=== PATIENT | female | born 1995 | race Caucasian/White ===

== ENCOUNTER 2019-11-23 11:45 | Inpatient (IN) ==
[2019-11-23] MEDS ORDERED: CITRIC ACID/SODIUM CITRATE 30 ML UDCUP PO ONE (11:48)
[2019-11-23] MEDS ORDERED: FAMOTIDINE 20 MG/2 ML VIAL IV ONE (11:48)
[2019-11-23] MEDS ORDERED: LACTATED RINGERS 1,000 ML IV SCH (12:00)
[2019-11-23 12:18] LABS: Basophils % 0.2 % (0.0-0.8); Eosinophils # 0.1 10*3/uL (0.0-0.87); Eosinophils % 0.9 % (0.00-10.9); Hemoglobin 13.5 GM/DL (12.0-16.0); Immature Granulocytes % 0.6 %; Immature Granulocytes Absolute 0.06 #; Lymphocytes % 20.9 % (21.3-54.2); Mean Corpuscular HGB Conc 32.9 GM/DL (32-36); Mean Corpuscular Volume 88.2 FL (87-102); Mean Platelet Volume 10.5 FL (9.6-12.0); Monocytes % 6.3 % (1.7-12.7); Neutrophils % 71.1 % (38.7-73.9); Platelet Count 243 T/CUMM (130-400); Red Blood Count 4.65 MC/CUMM (3.8-5.5); Red Cell Distribution Width 13.8 % (9.3-17.3); White Blood Count 9.7 T/CUMM (4-12)
[2019-11-23] MEDS ORDERED: MAGNESIUM SULF RIDER 100 ML IV ONE (12:18)
[2019-11-23] MEDS ORDERED: BUPIVACAINE SPINAL 0.75% 2 ML AMP SPINAL ONE (12:19)
[2019-11-23] MEDS ORDERED: PHENYLEPHRINE 1 MG/10 ML SYRINGE IV ONE (12:19)
[2019-11-23] MEDS ORDERED: ONDANSETRON 4 MG/2 ML VIAL ONE (12:19)
[2019-11-23] MEDS ORDERED: MORPHINE 10 MG/10 ML VIAL ONE (12:22)
[2019-11-23 12:33] LABS: INR 0.9; PT Patient Result 9.8 SECS (9.8-11.9); Partial Thromboplastin Time 26.7 SECS (23.9-33.8)
[2019-11-23] MEDS ORDERED: VANCOMYCIN INJ 2,000 MG in SODIUM CHLORIDE 0.9% 500 ML IV ONE (12:45)
[2019-11-23] MEDS ORDERED: OXYTOCIN/LR 30 UNIT/1,000 ML BAG IV ONE (13:28)
[2019-11-23 14:19] LABS: Cord Arterial Blood HCO3 18.7 MMOL/L
[2019-11-23 14:22] LABS: Cord Venous Blood HCO3 20.3 MMOL/L; Cord Venous Blood PCO2 60.9 MMHG; Cord Venous Blood PO2 21.8
[2019-11-23 14:23] LABS: Apearance,Urine CLEAR (Clear); Bilirubin,Urine Negative (Negative); Blood, Urine Negative (Negative); Glucose,Urine (UA) >=500 mg/dL (Negative); Ketones,Urine Negative (Negative); Mucus,Urine Occasional /LPF (Occasional); Nitrite,Urine Negative (Negative); Protein,Urine 100 MG/DL; Squamous Epithelial Cell,Urine Occasional /HPF (0-10); Urine Color Yellow (Yellow); Urine Specific Gravity 1.016 (1.001-1.035); Urine Urobilinogen < 2.0 EU/DL (0.2-1.0); WBC,Urine 1 /HPF (0-6)
[2019-11-23] MEDS ORDERED: MIDAZOLAM 2 MG/2 ML VIAL ONE (14:58)
[2019-11-23] MEDS ORDERED: propofoL 200 MG/20 ML VIAL IV ONE (14:58)
[2019-11-23] MEDS ORDERED: GLYCOPYRROLATE 0.4 MG/2 ML VIAL ONE (14:58)
[2019-11-23] MEDS ORDERED: KETOROLAC 60 MG/2 ML VIAL IM ONE (14:58)
[2019-11-23] MEDS: MAGNESIUM SULF DRIP 40 GM/1,000 ML ML IV SCH (16:09)
[2019-11-23] MEDS ORDERED: RHO(D) IMMUNE GLOBULIN 300 MCG SYRINGE IM ONE (17:20)
[2019-11-23] MEDS ORDERED: ONDANSETRON 4 MG/2 ML VIAL IV PRN (17:20)
[2019-11-23] MEDS ORDERED: OXYTOCIN/LR 20 UNIT/1,000 ML BAG IV ONE (17:20)
[2019-11-23] MEDS ORDERED: ACETAMINOPHEN 325 MG TABLET PO PRN (17:20)
[2019-11-23 21:25] LABS: Alanine Aminotransferase 16 U/L (13-56); Albumin 2.3 G/DL (3.4-5.0); Alkaline Phosphatase 78 U/L (45-117); Aspartate Amino Transferase 19 U/L (0-37); Bilirubin,Total < 0.39 MG/DL (0.2-1.0); Blood Urea Nitrogen 13 MG/DL (7-18); Calcium 8.7 MG/DL (8.5-10.1); Estimated Glom Filtration Rate 228 ML/MIN; Glucose 105 MG/DL (74-106); Osmolality,Calculated 274.7 MOS/KG (273-304); Total Protein 5.7 G/DL (6.4-8.3)
[2019-11-23] MEDS: DOCUSATE SODIUM 100 MG CAPSULE PO SCH (21:42)
[2019-11-23] MEDS: diphenhydrAMINE 50 MG/1 ML VIAL IV PRN (22:02)
[2019-11-24] MEDS: IBUPROFEN 800 MG TABLET PO PRN ×3 (02:33→19:40)
[2019-11-24 04:52] LABS: Basophils % 0.4 % (0.0-0.8); Eosinophils # 0.2 10*3/uL (0.0-0.87); Eosinophils % 1.6 % (0.00-10.9); Hematocrit 31.6 VOL% (35.7-47.0); Hemoglobin 10.3 GM/DL (12.0-16.0); Immature Granulocytes % 0.6 %; Immature Granulocytes Absolute 0.06 #; Lymphocytes # 1.9 10*3/uL (1.4-4.0); Lymphocytes % 20.1 % (21.3-54.2); Mean Corpuscular HGB Conc 32.6 GM/DL (32-36); Mean Corpuscular Volume 90.3 FL (87-102); Mean Platelet Volume 10.5 FL (9.6-12.0); Monocytes % 8.3 % (1.7-12.7); Platelet Count 191 T/CUMM (130-400); Red Cell Distribution Width 14.1 % (9.3-17.3); White Blood Count 9.4 T/CUMM (4-12)
[2019-11-24] MEDS: diphenhydrAMINE 50 MG/1 ML VIAL IV PRN ×2 (06:01→12:11)
[2019-11-24] MEDS: MULTIVITAMIN (PRENATAL) TABLET PO SCH (08:40)
[2019-11-24] MEDS: DOCUSATE SODIUM 100 MG CAPSULE PO SCH ×3 (08:40→20:20)
[2019-11-24] MEDS: MAGNESIUM SULF DRIP 40 GM/1,000 ML ML IV SCH (08:59)
[2019-11-24] MEDS: SIMETHICONE CHEW 80 MG TABLET PO PRN ×2 (13:39→19:41)
[2019-11-24] MEDS: MAGNESIUM HYDROXIDE SUSP 30 ML UDCUP PO PRN (19:39)
[2019-11-24] MEDS ORDERED: BISACODYL 10 MG SUPP RECTAL PRN (20:44)
[2019-11-25] MEDS: IBUPROFEN 800 MG TABLET PO PRN ×2 (05:13→12:00)
[2019-11-25] MEDS: SIMETHICONE CHEW 80 MG TABLET PO PRN ×3 (05:24→18:00)
[2019-11-25] MEDS: MULTIVITAMIN (PRENATAL) TABLET PO SCH (08:25)
[2019-11-25] MEDS: DOCUSATE SODIUM 100 MG CAPSULE PO SCH ×2 (08:25→21:00)
[2019-11-25 09:13] LABS: Basophils % 0.3 % (0.0-0.8); Eosinophils # 0.1 10*3/uL (0.0-0.87); Hemoglobin 8.6 GM/DL (12.0-16.0); Immature Granulocytes % 0.4 %; Immature Granulocytes Absolute 0.03 #; Lymphocytes # 1.1 10*3/uL (1.4-4.0); Lymphocytes % 15.2 % (21.3-54.2); Mean Corpuscular HGB Conc 31.9 GM/DL (32-36); Mean Corpuscular Volume 90.6 FL (87-102); Mean Platelet Volume 10.4 FL (9.6-12.0); Monocytes % 6.8 % (1.7-12.7); Neutrophils % 75.3 % (38.7-73.9); Platelet Count 170 T/CUMM (130-400); Red Blood Count 2.98 MC/CUMM (3.8-5.5); White Blood Count 7.1 T/CUMM (4-12)
[2019-11-25 09:38] LABS: Alanine Aminotransferase 14 U/L (13-56); Albumin 1.8 G/DL (3.4-5.0); Alkaline Phosphatase 68 U/L (45-117); Aspartate Amino Transferase 12 U/L (0-37); Bilirubin,Total < 0.39 MG/DL (0.2-1.0); Blood Urea Nitrogen 8 MG/DL (7-18); Calcium 8.3 MG/DL (8.5-10.1); Estimated Glom Filtration Rate 188 ML/MIN; Glucose 194 MG/DL (74-106); Osmolality,Calculated 283.3 MOS/KG (273-304); Total Protein 5.3 G/DL (6.4-8.3)
[2019-11-25] MEDS: MAGNESIUM HYDROXIDE SUSP 30 ML UDCUP PO PRN (11:05)
[2019-11-25] MEDS ORDERED: GLUCAGON 1 MG VIAL IM PRN (13:43)
[2019-11-25] MEDS ORDERED: DEXTROSE 10% 250 ML BAG IV PRN (13:43)
[2019-11-25] MEDS: metFORMIN 500 MG TABLET PO SCH (16:40)
[2019-11-25] MEDS: IBUPROFEN 800 MG TABLET PO SCH (18:35)
[2019-11-26] MEDS: SIMETHICONE CHEW 80 MG TABLET PO PRN (00:35)
[2019-11-26] MEDS: MAGNESIUM HYDROXIDE SUSP 30 ML UDCUP PO PRN (00:35)
[2019-11-26] MEDS: IBUPROFEN 800 MG TABLET PO SCH ×2 (00:36→06:32)
[2019-11-26] MEDS: DOCUSATE SODIUM 100 MG CAPSULE PO SCH (09:00)
[2019-11-26] MEDS: MULTIVITAMIN (PRENATAL) TABLET PO SCH (09:00)
[2019-11-26] MEDS: metFORMIN 500 MG TABLET PO SCH (09:00)
[2019-11-26 10:15] VITALS: BP 151/81
== END 2019-11-26 11:00 | disposition home or self-care (01) | DRG 540 ==
LOC: N.LD 11:45 → N.OB 11-24 16:03
PROVIDERS: ADMIT Obstetrics & Gynecology; ATTEND Obstetrics & Gynecology